=== PATIENT | male | born 1995 | race Caucasian/White ===

== ENCOUNTER 2016-10-04 21:07 | Emergency (ER) | payer MEDICAID ==
[2016-10-04 21:28] VITALS: RESP 20
--- NOTE | 2016-10-04 21:41 | EDPHY ---
H & P Time Seen by Provider: 10/04/16 21:24 HPI/ROS: HPI Right foot laceration. 20-year-old male by private vehicle with grandmother. Patient was in his garage. He reports that he accidentally broke a glass in a short of this glass lacerated the medial aspect of his right midfoot. He denies any other injury. No distal loss of sensation or weakness in his foot. No other complaints. He has had a tetanus shot within the last 5 years. ROS: Constitutional: No fever, no chills. No weakness. Musculoskeletal: No back pain. No neck pain. As above. Skin: No rashes. Laceration right foot. Neurological: No focal weakness or altered sensation. Past medical history: Pneumonia as a child. Social history: Here with grandmother. Student at [employer]. Physical Exam: General Appearance: Alert, no distress. This patient is responding to questions appropriately and in full sentences. This patient appears well- hydrated and well-nourished. Eyes: Pupils equal and round no pallor or injection. No lid edema, erythema or injection. Right foot exam: Significant for a linear 5 cm laceration right medial aspect mid foot. No tendon involvement. No bony or articular involvement. No pulsatile bleeding. No expanding hematoma. The right foot is neurovascularly intact. Please see wound care note for further details. Neurological: Motor sensory function is grossly intact. Cranial nerves are normal. Skin: Warm and dry, no rashes. Musculoskeletal: Neck is supple and nontender. Extremities are symmetrical. All joints range without pain or impingement. Psychiatric: No agitation. No depression. Database: EKG: Imaging: Right foot x-ray series: No evidence of radiopaque foreign body. No fracture, subluxation, dislocation. Interpreted by me. Procedures: Procedure: Laceration repair. Verbal consent was obtained from the patient. The 5 cm laceration on the right medial foot was anesthetized in the usual fashion. The wound was irrigated, draped and explored to its base with a gloved finger. There were no deep structures involved. No tendon injury was identified. No foreign body identified. The wound was repaired with 12, 4.0 Prolene sutures placed in interrupted fashion. The wound repair was tolerated well and there were no complications. The procedure was performed by myself. Emergency department course: Results of x-rays discussed with patient and family. After suture repair wound care was discussed. Infection precautions and return to emergency department precautions reviewed. Follow-up was discussed. They feel comfortable going home. All of the patient's questions were answered. The wound was dressed in an appropriate fashion. The patient was discharged home in good condition. Differential Diagnosis: The differential diagnosis on this patient includes but is not limited to right foot laceration. Retained foreign body, tendon laceration, significant neurovascular injury unlikely. This represents a partial list of diagnoses considered. These considerations are based on history, physical exam, past history, reassessment and diagnostic testing. Smoking Status: Never smoked Constitutional: Initial Vital Signs Temperature (C) 37.4 C 10/04/16 21:25 Heart Rate 101 H 10/04/16 21:25 Respiratory Rate 20 10/04/16 21:25 Blood Pressure 130/92 H 10/04/16 21:25 O2 Sat (%) 93 10/04/16 21:25 O2 Delivery Mode Room Air Allergies/Adverse Reactions: No Known Allergies Allergy (Verified 10/04/16 21:24) Home Medications: Medication Instructions Recorded Marinol 10/04/16 Medical Decision Making - Diagnostics Imaging Results: Imaging Impressions Foot X-Ray 10/04/16 21:24 Impression: Soft tissue injury along the medial midfoot with some overlying bandaging material, but no convincing radiopaque foreign body. There is no acute osseous abnormality. Departure - Departure Disposition: Home, Routine, Self-Care Clinical Impression: Laceration of right foot Condition: Good Instructions: Care For Your Stitches (ED), Laceration (ED) Additional Instructions: Read and follow provided instructions. Sutures are to be removed in 10-12 days. Follow-up with your primary care physician in 1-2 days for re-evaluation. Ibuprofen dosin mg every 6 hours with meals for the next 3 days only. Take only as needed for pain Return to the emergency department for worsening pain, bleeding, signs of infection as outlined in general instructions or other serious concerns. Referrals: LAVERNE MATA [Primary Care Provider] - As per Instructions
[2016-10-04 22:23] VITALS: BP 132/73; PULSE 95; TEMP 99.1; O2SAT 94
== END 2016-10-04 22:32 | disposition home or self-care (01) ==
LOC: CED 21:07
PROC: 0HQMXZZ Repair Right Foot Skin, External Approach (ICD-10-PCS; principal; 2016-10-04)
DX: S91.311A Laceration without foreign body, right foot, initial encounter (principal); W25.XXXA Contact with sharp glass, initial encounter; Y92.015 Private garage of single-family (private) house as the place of occurrence of the external cause
CPT/HCPCS: 73630-PO